=== PATIENT | male | born 1970 | race Caucasian/White ===

== ENCOUNTER 2017-05-31 19:45 | Emergency (ER) | payer OTHER ==
[~2017-05-31] VITALS: Ht 190.5 cm; Wt 136.4 kg
[2017-05-31] MEDS ORDERED: ELIQ5TAB PO (19:56)
[2017-05-31] MEDS ORDERED: LISI10TA4 PO (19:56)
[2017-05-31] MEDS ORDERED: HYDROmorphone HCL 1 MG/ML SYRINGE (J1170) IV ONE ×3 (20:15→22:00)
--- NOTE | 2017-05-31 21:14 | REP ---
Clinical: Trauma. Technique: AP, lateral, bilateral oblique and sunrise views of the left knee. Findings: Age-related changes are appreciated. No acute fracture or dislocation identified. Lateral and sunrise view suggests prepatellar and anterior soft tissue swelling and possible effusion. No subcutaneous emphysema or radiodense foreign body. Impression: Anterior/prepatellar swelling and possible effusion. No obvious acute fracture or dislocation. Signed by Flako Keith MD 05/31/2017 09:06 P
[2017-05-31] MEDS ORDERED: OXYCODONE/APAP 5MG/325MG(BULK FOR ED) 1 TABLET PO ONE (22:00)
[2017-05-31 22:03] VITALS: BP 128/80
== END 2017-05-31 22:47 | disposition home or self-care (01) ==
LOC: M ED 19:45 → EDBD 19:45 → M ED 22:47
DX: S86.902A Unspecified injury of unspecified muscle(s) and tendon(s) at lower leg level, left leg, initial encounter (principal); X50.1XXA Overexertion from prolonged static or awkward postures, initial encounter; Y92.814 Boat as the place of occurrence of the external cause; Y93.01 Activity, walking, marching and hiking; Y99.9 Unspecified external cause status
CPT/HCPCS: 73564; 96374; 96376; 99284; J1170